=== PATIENT | male | born 1950 | race Caucasian/White ===

== ENCOUNTER 2016-05-30 13:30 | Emergency (ER) | payer MEDICARE ==
[~2016-05-30] VITALS: Ht 170.2 cm; Wt 70.0 kg
[~2016-05-30 13:30] MED LIST: LEVA750T PO; POTA10TA2 PO; PRED20 PO; PULM180I INH; SIMV80TA PO; TAMS5CAP PO; VENTAER INH
[2016-05-30 13:31] VITALS: BP 115/62; PULSE 71; RESP 18; TEMP 99.1; O2SAT 96
[2016-05-30] MEDS ORDERED: CEPH-460 PO (14:11)
[2016-05-30] MEDS ORDERED: IBUP-232 PO (14:11)
[2016-05-30] MEDS ORDERED: BACT800T5 PO (14:11)
--- NOTE | 2016-05-30 14:11 | PD ---
HPI Chief Complaint: Skin Problem Time Seen by Provider: 14:09 Travel History International Travel<30 days: No Contact w/Intl Traveler<30days: No Traveled to known affect area: No History of Present Illness HPI 65-year-old male presents to the emergency Department with complaint of an abscess to his right buttocks 3 days. He thinks it may is draining because he has noticed some staining on his underwear. He denies fever, chills, nausea, vomiting. Denies difficulty with stool or change in stool. Has not taken any medications to alleviate his symptoms. Has tried hot showers and hot baths to alleviate the symptoms. No known allergies. History of COPD and bronchitis. No other modifying factors or associated signs and symptoms. PFSH Past Medical History Diminished Hearing: No Respiratory: Yes Integumentary: Yes (hx skin cancer) PNEUMOCCOCAL Vaccine (Year): 2009 Past Surgical History Oral Surgery: Yes (several teeth removed "a few years ago") Other Surgery: Yes (hernia surgery 2009) Social History Alcohol Use: No Tobacco Use: No Substance Use: No Allergies-Medications (Allergen,Severity, Reaction): Coded Allergies: No Known Allergies (Unverified , 05/30/16) Reported Meds & Prescriptions Reported Meds & Active Scripts Active Ibuprofen 600 Mg Tab 600 Mg PO Q8HR PRN Keflex (Cephalexin) 500 Mg Cap 500 Mg PO Q6H 10 Days Bactrim DS (Sulfamethoxazole-Trimethoprim) 800-160 Mg Tab 1 Tab PO BID 10 Days Flomax (Tamsulosin HCl) 0.4 Mg Cap 0.4 Mg PO HS Levaquin (Levofloxacin) 750 Mg Tab 750 Mg PO DAILY Prednisone 20 Mg Tab 40 Mg PO DAILY Take 40 mg (2 tablets) daily for 5 days Pulmicort Flexhaler (Budesonide Powder Inh) 180 Mcg/Act Inhp 180 Mcg INH Q12HR Ventolin Hfa 18 GM Inh (Albuterol Sulfate) 90 Mcg/Act Aer 1 Puff INH Q4H PRN Simvastatin 80 Mg Tab 80 Mg PO DAILY Reported Potassium Chloride ER (Potassium Chloride) 10 Meq Tab 10 Meq PO HS Review of Systems Except as stated in HPI: all other systems reviewed are Neg Physical Exam Narrative GENERAL: Well-nourished, well-developed male patient, in no acute distress; afebrile, nontoxic-appearing SKIN: There is an indurated area to the right medial buttocks which measures about 2 cm in diameter. It is fluctuant and draining purulent drainage. There is a zone of inflammation around it but no lymphangitis. HEAD: Atraumatic. Normocephalic. EYES: Pupils equal and round. No scleral icterus. No injection or drainage. ENT: Mucosa pink and moist. Airway patent. NECK: Trachea midline. CARDIOVASCULAR: Regular rate. RESPIRATORY: No accessory muscle use. GASTROINTESTINAL: Flat. MUSCULOSKELETAL: No obvious deformities. No clubbing. No cyanosis. No edema. NEUROLOGICAL: Awake and alert. Oriented 3. No obvious cranial nerve deficits. Motor grossly within normal limits. Normal speech. PSYCHIATRIC: Appropriate mood and affect; insight and judgment normal. Data Data Last Documented VS Vital Signs Date Time Temp Pulse Resp B/P Pulse Ox O2 Delivery O2 Flow Rate FiO2 05/30/16 13:31 99.1 71 18 115/62 96 Room Air Orders Wound Culture And Gram Stain (05/30/16 14:05) Tetanus/Diphtheria Tox Adult (Tetanus/Di (05/30/16 14:15) MDM Medical Decision Making Medical Screen Exam Complete: Yes Emergency Medical Condition: Yes Medical Record Reviewed: Yes Differential Diagnosis Abscess, perirectal abscess, folliculitis Narrative Course 65-year-old male with right buttock abscess that is draining purulent drainage. Tetanus updated in the ER. Abscess squeezed and drained while in the ER. Wound culture pending. Keflex, Bactrim, ibuprofen prescribed for home. Instructed patient to continue to do warm compresses and assist the are to continue draining. Patient verbalizes understanding and agreement with treatment plan. Patient is medically cleared and stable for discharge. Discussed reasons to return to the emergency department. Instructed patient to follow up with primary care provider. Patient agrees with treatment plan. The patients vital signs are stable and the patient is stable for outpatient follow- up and treatment. Patient discharged home, stable and in no acute distress. Diagnosis Primary Impression: Abscess of right buttock Referrals: Primary Care Physician Patient Instructions: Abscess (ED), Abscess Follow-up (ED), General Instructions Departure Forms: Tests/Procedures, Work Release Enter return to work date: May 31, 2016 Additional Instructions: Complete full course of antibiotics Warm compresses to the affected area Keep area clean and dry Ibuprofen or Tylenol as directed and as needed for pain and inflammation Follow-up with primary care provider Return to emergency department immediately with worsening of symptoms Med/Other Pt SpecificInfo: Prescription(s) given Scripts Ibuprofen 600 Mg [id number] Mg PO Q8HR PRN (PAIN) #20 TAB Ref 0 Prov:María Lema 05/30/16 Cephalexin (Keflex)500 Mg [id number] Mg PO Q6H 10 Days Ref 0 Prov:María Lema 05/30/16 Sulfamethoxazole-Trimethoprim (Bactrim DS)800-160 Mg Tab1 Tab PO BID 10 Days Ref 0 Prov:María Lema 05/30/16 Disposition: 01 DISCHARGE HOME Condition: Stable María Lema May 30, 2016 14:11
[2016-05-30] MEDS ORDERED: TETANUS/DIPHTHERIA TOXOID ADULT 0.5 ML VIAL IM ONE (14:15)
== END 2016-05-30 14:31 | disposition home or self-care (01) ==
LOC: NEPB 13:30
DX: L02.31 Cutaneous abscess of buttock (principal); B95.62 Methicillin resistant Staphylococcus aureus infection as the cause of diseases classified elsewhere; Z23 Encounter for immunization
CPT/HCPCS: 86403; 87070; 87186; 87205; 90471; 90714

== ENCOUNTER 2016-10-26 14:12 | Emergency (ER) | payer MEDICARE ==
[~2016-10-26] VITALS: Ht 165.1 cm; Wt 65.0 kg
[~2016-10-26 14:12] MED LIST changes: +BACT800T5 PO; +IBUP-232 PO; -LEVA750T PO; -PRED20 PO
[2016-10-26 14:14] VITALS: BP 144/69; PULSE 74; RESP 15; TEMP 98.4; O2SAT 98
--- NOTE | 2016-10-26 14:35 | PD ---
HPI . right knee pain Chief Complaint: Injury Time Seen by Provider: 14:34 Travel History International Travel<30 days: No Contact w/Intl Traveler<30days: No Traveled to known affect area: No History of Present Illness HPI 66-year-old male here with complaints of right knee pain. Patient says approximately one week ago he hurt his leg while he was out of town. He now reports trouble walking. He says that he has to drag his leg due to the pain. He denies any recent falls. He is able to bend and flex his knee. He has not yet seen his primary care provider. He has no other complaints. 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/16 Reported Meds & Prescriptions Reported Meds & Active Scripts Active Ibuprofen 600 Mg Tab 600 Mg PO Q6H PRN Bactrim DS (Sulfamethoxazole-Trimethoprim) 800-160 Mg Tab 1 Tab PO BID Flomax (Tamsulosin HCl) 0.4 Mg Cap 0.4 Mg PO HS Pulmicort Flexhaler (Budesonide Powder Inh) 180 Mcg/Act Inhp 180 Mcg INH Q12HR Ventolin Hfa 18 GM Inh (Albuterol Sulfate) 90 Mcg/Act Aer 1 Puff INH Q4H PRN Simvastatin 80 Mg Tab 80 Mg PO DAILY Reported Potassium Chloride ER (Potassium Chloride) 10 Meq Tab 10 Meq PO HS Review of Systems General / Constitutional: No: Fever Eyes: No: Visual changes HENT: No: Headaches Cardiovascular: No: Chest Pain or Discomfort Respiratory: No: Shortness of Breath Gastrointestinal: No: Abdominal Pain Genitourinary: No: Dysuria Musculoskeletal: Positive: Pain (knee pain ) Skin: No Rash Neurologic: No: Weakness Psychiatric: No: Depression Endocrine: No: Polydipsia Hematologic/Lymphatic: No: Easy Bruising Physical Exam Narrative GENERAL: AAO x 3, no acute distress, Well-nourished, well-developed patient. SKIN: Warm and dry. No visible rashes or bruising. HEAD: Normocephalic and atraumatic. EYES: No scleral icterus. No injection or drainage. ENT: No nasal drainage noted. Mucous membranes pink. Airway patent. NECK: Supple, trachea midline. No JVD. CARDIOVASCULAR: Regular rate and rhythm without murmurs, gallops, or rubs. RESPIRATORY: Breath sounds equal bilaterally. No accessory muscle use. No rhonchi or rales. GASTROINTESTINAL: Abdomen soft, non-tender, nondistended. EXTREMITIES: No cyanosis or edema. No tenderness to palpation of the bilateral knee. Patient is ambulatory, but drags his right leg. Flexion and extension is normal. Strength is normal bilaterally BACK: No obvious deformity. NEURO: CN II-12 intact, environmental analyst strength normal b/l, UE and LE 5/5, no focal deficits PSYCH: AAO x 3, normal affect. Data Data Last Documented VS Vital Signs Date Time Temp Pulse Resp B/P (MAP) Pulse Ox O2 Delivery O2 Flow Rate FiO2 10/26/16 14:14 98.4 74 15 144/69 (94) 98 Orders Orders Cory Bandage (10/26/16 14:38) Crutches (10/26/16 14:38) MDM Medical Decision Making Medical Screen Exam Complete: Yes Emergency Medical Condition: Yes Medical Record Reviewed: Yes Differential Diagnosis Sprain, internal derangement of the knee, meniscal injury, less likely fracture Narrative Course 66-year-old male here with complaints of knee pain. On examination patient has full range of motion of his extremity. He does appear to be dragging his leg. I do not suspect an acute fracture. I do not suspect bony abnormality. I do not feel xray is indicated as it will only show bone. I do think he may have a meniscal injury. Outpatient MRI. In the meantime I will provide him with Cory wrap and crutches. He can continue using ibuprofen at home. I recommend outpatient follow-up with his primary care provider. He may benefit from further workup and/or physical therapy. Patient verbalized understanding of instructions, questions were answered, and thanked me for their care. I advised them if their condition worsens, please return to the nearest emergency room for further care. Diagnosis Primary Impression: Right knee pain Qualified Codes: M25.561 - Pain in right knee Additional Impression: Internal derangement of knee Qualified Codes: M23.91 - Unspecified internal derangement of right knee Patient Instructions: General Instructions Additional Instructions: Rest the affected area as much as possible. Ice this area for 15-20 minutes at a time. You can do this every hour or as much as tolerated. Keep this area compressed (cory bandage) as tolerated. Elevate this area. Use ibuprofen as needed for pain and inflammation. Please return to emergency department if your symptoms return or worsen. Follow up with your primary care provider. Take medications as prescribed. Med/Other Pt SpecificInfo: Prescription(s) given Disposition: DISCHARGE HOME Condition: Stable Luzma Cool Oct 26, 2016 14:35
[2016-11-06] MEDS ORDERED: TRIA40P I-ARTICULR (14:42)
[2016-11-06] MEDS ORDERED: NAPR500T PO (15:25)
== END 2016-10-26 15:00 | disposition home or self-care (01) ==
LOC: NEPK 14:12
DX: M25.561 Pain in right knee (principal); M23.91 Unspecified internal derangement of right knee; Z85.828 Personal history of other malignant neoplasm of skin
CPT/HCPCS: 99282; E0113